=== PATIENT | male | born 1940 | race Caucasian/White ===

== ENCOUNTER 2017-05-09 11:46 | Emergency (ER) | payer MEDICARE ==
[~2017-05-09] VITALS: Ht 165.1 cm; Wt 84.5 kg
[~2017-05-09 11:46] MED LIST: /WARF25TA OR; ACET65TA PO; ASPI81TA45; ENALAPRIL PO; FISHCAP PO; LIPITOR PO; METFORMIN PO; MULTLIQ7 PO; PERC5TAB8 PO
[2017-05-09] MEDS ORDERED: GLIP5TAB8 (11:58)
[2017-05-09] MEDS ORDERED: JANU100T (11:58)
[2017-05-09] MEDS ORDERED: ASPIRIN 81 MG CHEW TABLET PO ONE (12:45)
[2017-05-09 13:04] LABS: BASO % 0.6 % (0.0-1.0); EOS # 0.2 K/mm3 (0.0-0.50); EOS % 2.3 % (0.0-3.0); LARGE UNSTAINED CELL # 0.4 K/mm3 (0.0-0.4); LARGE UNSTAINED CELL % 4.6 % (0.0-4.0); LYMPH # 2.8 K/mm3 (1.5-4.5); LYMPH % 33.6 % (24.0-44.0); MEAN CORPUSCULAR HEMOGLOBIN 30.5 pg (27.0-33.0); MEAN CORPUSCULAR HGB CONC 34.3 g/dl (32.0-36.5); MONO # 0.5 K/mm3 (0.0-0.8); MONO % 6.4 % (0.0-5.0); NEUTROPHILS # 4.3 K/mm3 (1.8-7.7); NEUTROPHILS % 52.6 % (36.0-66.0); PLATELET COUNT, AUTOMATED 229 k/mm3 (150-450); RED CELL DISTRIBUTION WIDTH 13.5 % (11.5-14.5); WHITE BLOOD COUNT 8.2 K/mm3 (4.0-10.0)
[2017-05-09 13:17] LABS: ANION GAP 4 MEQ/L (8-16); BLOOD UREA NITROGEN 17 MG/DL (7-18); CALCIUM LEVEL 9.7 MG/DL (8.8-10.2); CARBON DIOXIDE LEVEL 26 MEQ/L (21-32); CHLORIDE LEVEL 112 MEQ/L (98-107); CREATININE FOR GFR 1.14 MG/DL (0.70-1.30); GLOMERULAR FILTRATION RATE > 60.0 (>42); GLUCOSE, FASTING 85 MG/DL (83-110); POTASSIUM SERUM 4.2 MEQ/L (3.5-5.1); SODIUM LEVEL 142 MEQ/L (136-145)
[2017-05-09] MEDS ORDERED: NITROGLYCERIN 0.4 MG SUBL TABLET SL PRN (13:30)
--- NOTE | 2017-05-09 13:36 | REP ---
Portable chest x-ray: Sitting AP view. HISTORY: Chest pain. Comparison chest x-ray February 10, 2012. FINDINGS: EKG monitoring electrodes overlie the chest. There is a granulomatous calcification in the right base and granulomatous lymph node residuals are seen in the mediastinum. No infiltrate is seen. Pleural angles are sharp. Heart size is normal. IMPRESSION: No active disease. Signed by Nilesh Horn MD 05/09/2017 04:13 P
--- NOTE | 2017-05-09 13:46 | ECGEPIP ---
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
[2017-05-09 19:07] VITALS: BP 144/91
--- NOTE | 2017-05-10 08:29 | ECGEPIP ---
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
== END 2017-05-09 19:32 | disposition home or self-care (01) ==
LOC: M ED 11:46
DX: R07.89 Other chest pain (principal); I25.10 Atherosclerotic heart disease of native coronary artery without angina pectoris; I25.2 Old myocardial infarction; I10 Essential (primary) hypertension; E78.5 Hyperlipidemia, unspecified; Z98.61 Coronary angioplasty status; Z79.82 Long term (current) use of aspirin; Z79.899 Other long term (current) drug therapy

== ENCOUNTER → 2020-04-10 | Outpatient (CLI) | payer MEDICARE ==
[~2020-04-10] MED LIST changes: -/WARF25TA OR; +ASPI81TA85 PO; +ATOR80TA59 PO; +COUM1TAB18 OR; +ENAL5TAB PO; +GLIP5TAB8; +JANU100T; +METF500T13 PO; +PERC5TAB12 PO; +XARE10TA PO
[2020-04-10 11:05] LABS: HEMATOCRIT 44.1 % (42.0-52.0); HEMOGLOBIN 14.6 g/dl (13.5-17.5); MEAN CORPUSCULAR HEMOGLOBIN 29.5 pg (27.0-33.0); MEAN CORPUSCULAR HGB CONC 33.1 g/dl (32.0-36.5); MEAN CORPUSCULAR VOLUME 89.1 fl (80.0-96.0); PLATELET COUNT, AUTOMATED 245 10^3/uL (150-450); RED BLOOD COUNT 4.95 10^6/uL (4.30-6.10); WHITE BLOOD COUNT 8.4 10^3/uL (4.0-10.0)
[2020-04-10 11:16] LABS: INR 1.02; PROTHROMBIN TIME 13.1 SECONDS (11.8-14.0)
[2020-04-10 11:34] LABS: ALBUMIN 3.8 GM/DL (3.2-5.2); ALT/SGPT 53 U/L (12-78); BILIRUBIN,TOTAL 0.3 MG/DL (0.2-1.0); BLOOD UREA NITROGEN 17 MG/DL (7-18); CALCIUM LEVEL 9.3 MG/DL (8.8-10.2); CARBON DIOXIDE LEVEL 26 MEQ/L (21-32); CHLORIDE LEVEL 111 MEQ/L (98-107); CREATININE FOR GFR 1.12 MG/DL (0.70-1.30); GLOMERULAR FILTRATION RATE > 60.0 (>35); GLUCOSE, FASTING 85 MG/DL (70-100); POTASSIUM SERUM 4.1 MEQ/L (3.5-5.1); SODIUM LEVEL 140 MEQ/L (136-145); TOTAL PROTEIN 7.3 GM/DL (6.4-8.2)
--- NOTE | 2020-04-10 11:34 | REP ---
REASON: Preoperative evaluation. The latest prior for comparison is 05/09/2017, a portable exam. FINDINGS: The superior mediastinal structures are midline. The cardiac silhouette is unremarkable in size, shape, and position. The diaphragmatic surfaces of the lungs are regular, and the costophrenic angles are clear. The pulmonary lucero are clear. The imaged osseous structures are intact. IMPRESSION: There is no acute cardiopulmonary disease. There is an incidental calcified granuloma in the right lower lobe. Electronically Signed by Moe Brizuela DO 04/10/2020 01:45 P
[2020-04-10 11:37] LABS: ERYTHROCYTE SEDIMENTATION RATE 17 mm/hr (0-20)
--- NOTE | 2020-04-11 13:04 | ECGEPIP ---
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
== END ==
LOC: M LAB 10:27
PROVIDERS: ATTEND Orthopaedic Surgery
DX: Z01.812 Encounter for preprocedural laboratory examination (principal); Z01.810 Encounter for preprocedural cardiovascular examination; M17.11 Unilateral primary osteoarthritis, right knee; I45.10 Unspecified right bundle-branch block; Z79.899 Other long term (current) drug therapy

== ENCOUNTER → 2020-04-17 | Outpatient (CLI) | payer MEDICARE ==
[~2020-04-17] MED LIST changes: -ASPI81TA85 PO; +ASPI81TA86 PO; +ENAL5TA PO; -ENAL5TAB PO
== END ==
LOC: M LABSMTC 09:50
PROVIDERS: ATTEND Anesthesiology
DX: Z01.818 Encounter for other preprocedural examination (principal); Z11.59 Encounter for screening for other viral diseases

== ENCOUNTER 2020-04-20 06:57 | Inpatient (IN) | payer MEDICARE ==
--- NOTE | 2020-04-15 11:49 | HPE ---
DATE OF ADMISSION: 04/20/2020 ATTENDING PHYSICIAN: Dr. Ramana Alonzo. CHIEF COMPLAINT: Right knee pain and stiffness. HISTORY: The patient is a pleasant 80-year-old male presenting to clinic for history and physical regarding his right knee. The patient continues to have symptoms in the right knee with weightbearing activities and activities of daily living despite conservative treatment. The patient consented for an elective right total knee arthroplasty with Dr. Alonzo for his continued symptoms. Medical optimization completed with FERCHO Allen CURRENT MEDICATIONS: - aspirin 81 mg daily - enalapril 5 mg daily - Januvia 100 mg daily - glipizide 5 mg three times daily - atorvastatin 80 mg daily - metformin 1000 mg twice daily ALLERGIES: There are NO KNOWN DRUG ALLERGIES. CHRONIC MEDICAL CONDITIONS: Coronary arteriosclerosis. Carpal tunnel syndrome. Hyperlipidemia. Essential hypertension. Type 2 diabetes. PAST SURGICAL HISTORY: Left total knee arthroplasty. Coronary artery stenting, LAD. Carpal tunnel release. SOCIAL HISTORY: The patient is does not use tobacco products and occasionally consumes beer. The patient is and lives at home with spouse. REVIEW OF SYSTEMS: The patient denies fevers, chills, nausea, vomiting or diarrhea. Denies chest pain, shortness of breath, lightheadedness, dizziness or headaches. Denies any recent upper respiratory or urinary tract infection symptoms. Denies any abdominal pain continues to have right knee pain with weightbearing activities and activities of daily living. PHYSICAL EXAMINATION: GENERAL: Well-nourished, well-developed male in no apparent distress. He is alert, oriented and cooperative. Mood and affect are appropriate. VITAL SIGNS: Height 65 inches, weight 183 pounds, temperature 97 degrees, blood pressure 140/80, respirations 12, heart rate 54. NECK: Supple without lymphadenopathy. HEART: Regular rate and rhythm. LUNGS: Clear to auscultation bilaterally. ABDOMEN: Soft and nontender to palpation. Bowel sounds are present. MUSCULOSKELETAL: Right knee exhibits no gross abnormalities. Skin is intact. There is tenderness along the medial joint line. The patient can extend knee to about 2 degrees and flex to 95 degrees. Right lower extremity strength is 5/5. No hip irritability was elicited with range of motion testing. Calf is soft, nontender to palpation with no palpable cords noted. He is neurovascularly intact distally. LABORATORY DATA: Chest x-ray: No acute cardiopulmonary process. Incidental calcified granuloma in the right lower lobe. Right knee x-ray notable for end-stage degenerative changes. EKG: Normal sinus rhythm with PVCs and right bundle branch block. Comprehensive metabolic profile: Fasting glucose 85, BUN 17, creatinine for GFR 1.12, GFR greater than 60. Sodium 140, potassium 4.1, chloride elevated at 111, carbon dioxide 26, anion gap decreased at 3, calcium 9.3, AST 29, ALT 53, alkaline phosphatase 78, total bilirubin 0.3, total protein 7.3, albumin 3.8, albumin-globulin ratio 1.1. Prothrombin time 13.1, INR 1.02. Complete blood count: ESR 17, WBC 8.4, RBCs 4.95, hemoglobin 14.6, hematocrit 44.1, platelets 245. IMPRESSION: Right knee osteoarthritis with x-rays notable for end-stage degenerative changes. PLAN: The patient consented for an elective right total knee arthroplasty with Dr. Alonzo for his continued symptoms. Medical optimization completed with FERCHO Allen. The patient understands to be nothing by mouth after midnight, the night prior to surgery. He will call [facility] on Monday afternoon for a report time on Monday. He will continue to use his Bactroban and Hibiclens as directed. He will follow his primary respiratory care specialist's recommendations for taking daily medications and any anticoagulants if appropriate.
[~2020-04-20] VITALS: Ht 167.6 cm; Wt 83.0 kg
[~2020-04-20 06:57] MED LIST changes: +ACETAMINOPHEN 500 MG TAB PO ONE; +ASPI81TA85 PO; -ASPI81TA86 PO; +CelecoXIB (CeleBREX) 100 MG CAP PO ONE; -ENAL5TA PO; +ENAL5TAB PO; +LR 1,000 ML IV ONE; -PERC5TAB12 PO; +PERCOCET 5MG/325MG TAB PO ONE; +PREGABALIN 75 MG CAP(LYRICA) PO ONE; -XARE10TA PO; +ceFAZolin SOD 2 GM in IV 1 EA IV ONE
[2020-04-20] MEDS ORDERED: propofoL 500 MG/50 ML VIAL As Ordered ONE (08:46)
[2020-04-20] MEDS ORDERED: fentaNYL 100 MCG/2 ML INJECTION (J3010) As Ordered ONE ×2 (08:46→08:56)
[2020-04-20] MEDS ORDERED: LIDOCAINE 2% 100MG/5ML SDV (FOR ANES.) As Ordered ONE (08:47)
[2020-04-20] MEDS ORDERED: ONDANSETRON 4MG/2ML VIAL As Ordered ONE (08:47)
[2020-04-20] MEDS ORDERED: BUPIVACAINE/DEXTROSE 0.75% 2 ML AMP As Ordered ONE (08:54)
[2020-04-20] MEDS ORDERED: MIDAZOLAM INJ 2MG/2ML VIAL (J2250 PER 1MG) As Ordered ONE ×2 (08:56→10:17)
[2020-04-20] MEDS ORDERED: MIDAZOLAM INJ 2MG/2ML VIAL (J2250 PER 1MG) IV ONE (09:45)
[2020-04-20] MEDS ORDERED: fentaNYL 100 MCG/2 ML INJECTION (J3010) IV ONE (09:45)
[2020-04-20] MEDS ORDERED: BUPIVACAINE/EPIN 0.25% 30 ML VIAL As Ordered ONE (10:19)
[2020-04-20] MEDS ORDERED: TRANEXAMIC ACID 100 MG/ML 10ML VIAL As Ordered ONE (10:20)
[2020-04-20] MEDS ORDERED: ceFAZolin 1GM VIAL (J0690 PER 500MG) As Ordered ONE (10:21)
[2020-04-20] MEDS ORDERED: BUPIVACAINE HCL 0.25% 30ML VIAL As Ordered ONE (10:21)
[2020-04-20] MEDS ORDERED: EPINEPHrine INJ 1 MG/ML 1ML AMP As Ordered ONE (10:21)
[2020-04-20] MEDS ORDERED: BUPIVACAINE LIPOSOME/PF 1.3% 20ML VIAL (13.3MG/ML)(EXPAREL)(C9290 PER1MG) As Ordered ONE (10:21)
[2020-04-20] MEDS ORDERED: ROPIvacaine 0.5% 30ML INJECTION (J2795 PER 1MG) ONE (10:48)
[2020-04-20] MEDS ORDERED: dexameTHASONE 10MG/1ML VIAL PRES.FREE (J1100 PER 1MG) ONE (10:48)
[2020-04-20] MEDS ORDERED: EPINEPHrine INJ 1 MG/ML 1ML AMP ONE (10:48)
[2020-04-20] MEDS ORDERED: ePHEDrine SULFATE 25 MG/5 ML(5MG/ML) SYRINGE As Ordered ONE (11:16)
[2020-04-20] MEDS ORDERED: PHENYLephrine HCL 500 MCG/5 ML (100MCG/ML) SYRINGE (J2370) As Ordered ONE (11:16)
[2020-04-20] MEDS ORDERED: ONDANSETRON 4MG/2ML VIAL IV PRN (13:30)
[2020-04-20] MEDS ORDERED: D5W/0.45% SODIUM CHLORIDE 1,000 ML IV SCH (13:30)
[2020-04-20] MEDS ORDERED: ACETAMINOPHEN TAB 650MG DOSE (2X325MG) PO PRN (13:30)
[2020-04-20] MEDS ORDERED: PERCOCET 5MG/325MG TAB PO PRN (13:30)
[2020-04-20] MEDS ORDERED: PROMETHAZINE INJ 25 MG/ML VIAL (J2550) IV PRN (13:30)
--- NOTE | 2020-04-20 13:46 | REP ---
Clinical: Status post knee replacement. Technique: portable AP and cross-table lateral views. Findings: The patient is status post right knee replacement with normal positioning and appearance to the femoral and tibial components. Overlying postsurgical changes appreciated. Impression: Status post right knee replacement. Electronically Signed by Gavin Waters MD 04/20/2020 01:38 P
[2020-04-20 15:00] VITALS: BP 134/81
[2020-04-20 15:30] VITALS: BP 128/77
[2020-04-20] MEDS ORDERED: GLUCAGON INJ 1MG VIAL SC PRN (15:45)
[2020-04-20] MEDS ORDERED: DEXTROSE 50% 50 ML SYRINGE IV PRN (15:45)
[2020-04-20] MEDS ORDERED: GLUCOSE 4GM CHEW TABLET PO PRN (15:45)
--- NOTE | 2020-04-20 16:01 | CR.PDOC ---
General Date of Consultation: Apr 20, 2020 Referring Provider: Ramana Alonzo MD Consultation REASON FOR CONSULTATION/CHIEF COMPLAINT: Post op medical management HISTORY OF PRESENT ILLNESS: Patient is 80M with PMH OA, HTN, DM, HLD, CAD, Diverticulitis, carpal tunnel syndrome underwent R. TKA today. He had a history of b/l knee pains and has had previous L. TKA and now going for the R. knee. He is comfortable currently and denies any discomfort at all as well as any other complaints including chest pain, SOB, fever, chills. PAST MEDICAL HISTORY: Refer to HPI PAST SURGICAL HISTORY: L. TKA PCI with 1 stent placed 12 years ago carpal tunnel release SOCIAL HISTORY: Social alcohol. Denies tobacco or drug use. FAMILY HISTORY: Brother- [place] ALLERGIES: Please see below. REVIEW OF SYSTEMS: 10 point review of system negative except as stated in HPI HOME MEDICATIONS: Please see below. PHYSICAL EXAMINATION: General: No acute distress, Alert, pale Eyes: Normal sclera, EOMI HENT: Atraumatic Cardiovascular: Normal rate, normal rhythm. Pulmonary: Clear to auscultation b/l, no wheezing GI: Soft, nontender, nondistended Skin: Warm and dry. MSK: L. knee linear vertical scar. R. knee cover in bandage c/d/i. Neuro: CN grossly intact. No focal deficits. Strengths equal b/l. Psych: oriented x 3 LABORATORY DATA: See below. IMAGING: R. knee XR- Findings: The patient is status post right knee replacement with normal positioning and appearance to the femoral and tibial components. Overlying postsurgical changes appreciated. Impression: Status post right knee replacement. MICROBIOLOGY: None ASSESSMENT AND PLAN: 1. s/p R. TKA - Performed 04/20/20. Following by Orthopedic surgery. - PT eval and treat. - Pain control, not in significant discomfort yet at this time. - Xarelto for DVT ppx. Monitor wound. 2. DM - Hold hold oral meds. Start on low dose Levemir and ISS. - Monitor BS and adjust as needed. Restart home meds tomorrow or can even wait until discharge. 3. HTN - BP controlled. - Resume home Enalapril 5mg daily. 4. CAD s/p PCI - resume statin. - Will resume ASA tomorrow night despite Xarelto. PCI was 12 years ago with stent. - Increased risk of bleed. Discussed with patient. 5. HLD - c/w statin DVT ppx: Xarelto Vital Signs/I&O Vital Signs Date Time Temp Pulse Resp B/P (MAP) Pulse Ox O2 Delivery O2 Flow Rate FiO2 04/20/20 15:30 97.8 82 18 128/77 (94) 93 Room Air 04/20/20 13:05 2 Laboratory Data Labs 24H Laboratory Tests 2 04/20/20 08:07: Bedside Glucose (Misc Panel) 158H Allergies Coded Allergies: No Known Allergies (Verified , 04/13/20) Home Medications Scheduled Aspirin (Aspir 81) 81 Mg Tablet.dr, 81 MG PO DAILY, #30 (Reported) Atorvastatin Calcium (Atorvastatin Calcium) 80 Mg Tablet, 80 MG PO DAILY, (Reported) Enalapril Maleate (Enalapril Maleate) 5 Mg Tablet, 5 MG PO DAILY, (Reported) Glipizide (Glipizide) 5 Mg Tab, DAILY, #90 (Reported) Metformin HCl (Metformin HCl) 500 Mg Tablet, 500 MG PO BID, (Reported) Sitagliptin Phosphate (Januvia) 100 Mg Tab, DAILY, #30 (Reported) [Multivitamin] , 1 CAP PO DAILY, (Reported) WILFRID PRINCE MD Apr 20, 2020 16:01
[2020-04-20 16:30] VITALS: BP 133/81
[2020-04-20 17:30] VITALS: BP 126/79
[2020-04-20] MEDS: ceFAZolin SOD 2 GM in IV 1 EA IV SCH (17:58)
[2020-04-20] MEDS: HumaLOG INSULIN (NovoLOG) PER UNIT SC SCH (17:58)
[2020-04-20 19:12] VITALS: BP 124/78
[2020-04-20] MEDS ORDERED: HumaLOG INSULIN (NovoLOG) PER UNIT SC SCH (21:00)
[2020-04-20] MEDS ORDERED: LEVEMIR (INSULIN DETEMIR) 1 UNITS/0.01ML SC SCH (21:00)
[2020-04-20 22:00] VITALS: BP 124/71
[2020-04-21 02:00] VITALS: BP 130/79
[2020-04-21] MEDS: ceFAZolin SOD 2 GM in IV 1 EA IV SCH (02:07)
[2020-04-21] MEDS: PERCOCET 5MG/325MG TAB PO PRN ×2 (02:07→08:26)
[2020-04-21 06:00] VITALS: BP 149/75
[2020-04-21] MEDS ORDERED: PERC5TAB12 PO (06:16)
[2020-04-21] MEDS ORDERED: XARE10TA PO (06:16)
[2020-04-21 07:34] LABS: HEMATOCRIT 40.5 % (42.0-52.0); HEMOGLOBIN 13.3 g/dl (13.5-17.5); MEAN CORPUSCULAR HEMOGLOBIN 29.4 pg (27.0-33.0); MEAN CORPUSCULAR HGB CONC 32.8 g/dl (32.0-36.5); MEAN CORPUSCULAR VOLUME 89.6 fl (80.0-96.0); PLATELET COUNT, AUTOMATED 220 10^3/uL (150-450); RED BLOOD COUNT 4.52 10^6/uL (4.30-6.10); WHITE BLOOD COUNT 13.4 10^3/uL (4.0-10.0)
[2020-04-21] MEDS: HumaLOG INSULIN (NovoLOG) PER UNIT SC SCH ×2 (08:26→12:00)
[2020-04-21 08:29] VITALS: BP 163/87
[2020-04-21] MEDS ORDERED: MIRALAX *UNIT DOSE* 17GM PACKET PO SCH (09:00)
[2020-04-21] MEDS ORDERED: ENALAPRIL MALEATE 5 MG TAB PO SCH (09:00)
[2020-04-21] MEDS ORDERED: MOM 30ML SUSPENSION UDC PO SCH (09:00)
[2020-04-21 10:00] VITALS: BP 151/88
--- NOTE | 2020-04-21 11:30 | IPNPDOC ---
Text Note Date of Service The patient was seen on 04/21/20. NOTE Patient seen and examined. No overnight events PHYSICAL EXAMINATION: General: No acute distress, Alert, pale Eyes: Normal sclera, EOMI HENT: Atraumatic Cardiovascular: Normal rate, normal rhythm. Pulmonary: Clear to auscultation b/l, no wheezing GI: Soft, nontender, nondistended Skin: Warm and dry. MSK: L. knee linear vertical scar. R. knee cover in bandage c/d/i. Neuro: CN grossly intact. No focal deficits. Strengths equal b/l. Psych: oriented x 3 ASSESSMENT AND PLAN: 1. s/p R. TKA - Performed 04/20/20. Following by Orthopedic surgery. - PT eval and treat. - Pain control, not in significant discomfort yet at this time. - Xarelto for DVT ppx. Monitor wound. 2. DM - Monitor BS and adjust as needed. Restart home meds tomorrow or can even wait until discharge. 3. HTN - BP controlled. - Resume home Enalapril 5mg daily. 4. CAD s/p PCI - resume statin. - Will resume ASA tomorrow night despite Xarelto. PCI was 12 years ago with stent. - Increased risk of bleed. Discussed with patient. 5. HLD - c/w statin DVT ppx: Xarelto Disposition activity, pain control and diet as per primary VS,Fishbone, I+O VS, Fishbone, I+O Laboratory Tests 04/21/20 06:38 Vital Signs Date Time Temp Pulse Resp B/P (MAP) Pulse Ox O2 Delivery O2 Flow Rate FiO2 04/21/20 10:00 97.7 81 18 151/88 (109) 94 Room Air 04/20/20 13:05 2 I&O- Last 24 Hours up to 6 AM 04/21/20 06:00 Intake Total 1385 ml Output Total 1250 ml Balance 135 ml SHELLIE ARMENTA MD Apr 21, 2020 11:30
[2020-04-21] MEDS ORDERED: RIVAROXABAN 10 MG TAB (XARELTO) PO SCH (18:00)
[2020-04-21] MEDS ORDERED: ASPIRIN 81 MG ENTERIC TAB PO SCH (21:00)
--- NOTE | 2020-04-23 10:36 | RO ---
DATE OF SURGERY: 04/20/2020 PREOPERATIVE DIAGNOSIS: Right knee osteoarthritis. POSTOPERATIVE DIAGNOSIS: Right knee osteoarthritis. PROCEDURE PERFORMED: Right total knee replacement. SURGEON: Ramana Alonzo MD TWISTER HAND: Madelin Lopez PA-C ANESTHESIA: Spinal with block; Dr. Bach. COMPLICATIONS: None. ESTIMATED BLOOD LOSS: Less than 100. TOURNIQUET: Was inflated; tourniquet time less than 70 minutes at 250 mmHg. COMPONENTS USED: Include DePuy Attune total knee system, size 6 femoral component, size 6 polyethylene posterior stabilized spacer, size 7 tibial tray and 32 mm patella button and methylmethacrylate bone cement, tobramycin impregnated. INDICATIONS: Progressive discomfort in the right knee. Radiographic evidence of arthritic change. Patient has elected for operative intervention. Consent reviewed in detail including a shree discussion of pathology involved, the procedure proposed, alternatives including doing nothing and risks including not limited to pain, failure, infection, bleeding blood loss, incomplete relief of symptoms, need for additional surgery and other issues. The patient agrees to proceed with surgery. OPERATIVE COURSE: Identified in holding area. Site side verified. Brought to the operating room. After spinal anesthesia was administered, he was then positioned in usual fashion for exposure of the right lower extremity for knee arthroplasty. The femoral block had been administered in the preoperative area. Next, time-out was accomplished. Once I and the neurology nurse were comfortable with the patient's positioning, he was sterilely prepped and draped. We began the procedure. The leg was elevated. Ellsworth exsanguination was accomplished. Tourniquet was inflated to 250 mmHg. A standard midline parapatellar incision made, developed down through skin and subcuticular tissues. Arthrotomy to the medial side. Patella was everted. The medial release was accomplished. Infrapatellar fat pad was removed. The knee was placed in a flexed position. A femoral opening reamer was utilized, followed by the intramedullary guide. Distal femoral cuts implemented with the appropriate retractors protecting the collateral ligaments. Cut was made by Ms. Lopez. Next, once this was accomplished AP sizing jig was applied predicting the size 6 femoral component. Next, 4-in-1 sizing block was then installed, pinned into place. Anterior and posterior cuts were made followed by chamfer cuts. Next, once this was accomplished the notch cutting guide was applied, pinned into place. Femoral notch cut was made. Next, once this was accomplished, extramedullary tibial guide was applied, pinned into place 4 mm off the medial side. A drop suze was utilized to verify alignment. Hohmann retractors were secured by Ms. Lopez. Tibial cut was made with the oscillating saw. Next, a laminar form block maker was utilized to expose the meniscus and posterior structures. Meniscus was removed using a #15 blade knife. Posterior condylar cuts were debrided using a curved osteotome removing posterior osteophyte. Next, AP sizing blocks were utilized predicting the tibial component as a size 6 spacer. Next, the knee was flexed. Posterior retractor was applied. Hohmann retractors were applied. Tibial base plate was sized for a size 7. This was pinned into place. The broach guide was installed. Canal opening drill was utilized for the tibia, followed by the broach. Broach left in place. Next, the trial femoral component was installed. The trial tibial tray was installed. The knee was placed through a range of motion. A 6 mm spacer was found to be appropriate. Knee in extended position. Posterior patella cut was made with the oscillating saw. A 32 mm patellar jig was installed. Patella was drilled. Trial patella was installed. Knee was placed through a range of motion. Patellar tracking was excellent. Next, trial components were then removed. I prepared the knee surfaces while Ms. Lopez stepped to the back table to prepare the bone cement. Once the bone cement was the appropriate consistency, we placed bone cement on the posterior femoral condyles. We had lavaged the bone surfaces with pulse lavage and dried them. We applied cement on the tibial surface. Cemented the tibial component. Removed excess cement using curettes. Femoral component was then cemented into place, tamped into place. Excess cement removed using curettes. Non-trial polyethylene 6 posterior stabilized spacer was installed. Knee was placed in extended position. Patella was everted. Patella button was cemented into place. Patella clamp applied until cement was hardened. Excess cement was removed from the patella using curettes. Next, once this cement was the appropriate consistency, we then utilized Exparel solution for postoperative analgesia. We irrigated with pulse lavage. We allowed tranexamic acid (TXA) solution to stay in the knee for 1 minute. Next, arthrotomy was closed with interrupted and running Stratafix stitch. The skin incision was closed using interrupted stitch, followed by application of a Prineo dressing. Tourniquet was deflated. The patient was moved to recovery room in good condition. For further details please refer to medical record. Ms. Madelin Lopez was present and participated in the entirety of the case in capacity of funeral assistant.
== END 2020-04-21 12:40 | disposition home or self-care (01) | DRG 470 ==
LOC: M OR 06:57 → M MS5PR 14:55
PROVIDERS: ADMIT Orthopaedic Surgery; ATTEND Orthopaedic Surgery
PROC: 0SRC0J9 Replacement of Right Knee Joint with Synthetic Substitute, Cemented, Open Approach (ICD-10-PCS; principal; 2020-04-20 09:15)
DX: M17.11 Unilateral primary osteoarthritis, right knee (principal); Z11.59 Encounter for screening for other viral diseases; E78.5 Hyperlipidemia, unspecified; I10 Essential (primary) hypertension; E11.9 Type 2 diabetes mellitus without complications; Z88.6 Allergy status to analgesic agent; Z79.899 Other long term (current) drug therapy; Z79.82 Long term (current) use of aspirin; Z96.652 Presence of left artificial knee joint; I25.10 Atherosclerotic heart disease of native coronary artery without angina pectoris; K57.30 Diverticulosis of large intestine without perforation or abscess without bleeding; Z95.2 Presence of prosthetic heart valve

== ENCOUNTER → 2021-04-14 | Outpatient (REF) | payer MEDICARE ==
[~2021-04-14] MED LIST changes: -ACETAMINOPHEN 500 MG TAB PO ONE; -ASPI81TA85 PO; +ASPI81TA86 PO; -CelecoXIB (CeleBREX) 100 MG CAP PO ONE; +ENAL5TA PO; -ENAL5TAB PO; -LR 1,000 ML IV ONE; +PERC5TAB12 PO; -PERCOCET 5MG/325MG TAB PO ONE; -PREGABALIN 75 MG CAP(LYRICA) PO ONE; +XARE10TA PO; -ceFAZolin SOD 2 GM in IV 1 EA IV ONE
== END ==
LOC: M LAB REF 13:10
PROVIDERS: ATTEND Nurse Practitioner Adult Health
DX: N39.41 Urge incontinence (principal)

== ENCOUNTER → 2021-06-29 | Outpatient (REF) | payer MEDICARE ==
[2021-06-29 12:28] LABS: APPEARANCE, URINE HAZY (CLEAR); BACTERIA, URINE AUTO NEGATIVE (NEGATIVE); BILIRUBIN, URINE AUTO NEGATIVE (NEGATIVE); BLOOD, URINE BLOOD NEGATIVE (NEGATIVE); COLOR, URINE YELLOW (YELLOW); GLUCOSE, URINE (UA) AUTO NEGATIVE (NEGATIVE); KETONE, URINE AUTO NEGATIVE (NEGATIVE); LEUKOCYTE ESTERASE, URINE AUTO NEGATIVE (NEGATIVE); MUCUS, URINE SMALL (NEGATIVE); NITRITE, URINE AUTO NEGATIVE (NEGATIVE); PROTEIN, URINE AUTO NEGATIVE (NEGATIVE); RBC, URINE AUTO 0 /HPF (0-3); SPECIFIC GRAVITY URINE AUTO 1.019 (1.002-1.035); SQUAMOUS EPITHELIAL CELL UR AU 0 /HPF (0-6); UROBILINOGEN, URINE AUTO 0.2 mg/dL (0.0-2.0); WBC, URINE AUTO 0 /HPF (0-3)
== END ==
LOC: M SMT 11:49
PROVIDERS: ATTEND Nurse Practitioner Women's Health
DX: N40.1 Benign prostatic hyperplasia with lower urinary tract symptoms (principal)
CPT/HCPCS: 51798; 81001; 87086; G0463

== ENCOUNTER → 2022-02-11 | Outpatient (CLI) | payer MEDICARE | LOC: M LABSMTC 09:43 | PROVIDERS: ATTEND Internal Medicine Cardiovascular Disease | DX: Z01.812 Encounter for preprocedural laboratory examination (principal); Z20.822 Contact with and (suspected) exposure to COVID-19 ==

== ENCOUNTER → 2022-06-16 | Outpatient (CLI) | payer MEDICARE ==
[~2022-06-16] MED LIST changes: +ISOVUE-370 76% 100ML VIAL As Ordered ONE
== END ==
LOC: M RAD 08:53
PROVIDERS: ATTEND Nurse Practitioner Adult Health
DX: R91.8 Other nonspecific abnormal finding of lung field (principal); I25.10 Atherosclerotic heart disease of native coronary artery without angina pectoris; K76.0 Fatty (change of) liver, not elsewhere classified; J84.10 Pulmonary fibrosis, unspecified
CPT/HCPCS: 71260; Q9967

== ENCOUNTER → 2023-03-08 | Outpatient (CLI) | payer MEDICARE ==
[~2023-03-08] MED LIST changes: +ENAL1TAB48 PO; -ENAL5TA PO; -ISOVUE-370 76% 100ML VIAL As Ordered ONE
== END ==
LOC: M WUC 11:49
PROVIDERS: ATTEND Nurse Practitioner Adult Health
DX: M19.012 Primary osteoarthritis, left shoulder (principal); M25.812 Other specified joint disorders, left shoulder

== ENCOUNTER → 2025-02-19 | Outpatient (REF) | payer MEDICARE ==
[~2025-02-19] MED LIST changes: +GLIP5TAB17; -GLIP5TAB8
[2025-02-19 13:02] LABS: RSV AMPLIFICATION NEGATIVE (NEGATIVE)
== END ==
LOC: M LAB REF 11:52
PROVIDERS: ATTEND Nurse Practitioner Family
DX: R53.83 Other fatigue (principal); R53.1 Weakness

== ENCOUNTER → 2025-05-06 | Outpatient (CLI) | payer MEDICARE | LOC: M RAD 10:32 | PROVIDERS: ATTEND Nurse Practitioner Family | DX: N18.32 Chronic kidney disease, stage 3b (principal); N28.1 Cyst of kidney, acquired; N40.0 Benign prostatic hyperplasia without lower urinary tract symptoms ==

== ENCOUNTER → 2025-05-12 | Outpatient (REF) | payer MEDICARE ==
[2025-05-12 19:03] LABS: IRON (FE) 53.0 UG/DL (65-175); PERCENT SATURATION 19.6 % (19.7-50.0)
== END ==
LOC: M LAB REF 17:21
PROVIDERS: ATTEND Internal Medicine Nephrology
DX: D50.9 Iron deficiency anemia, unspecified (principal)

== ENCOUNTER → 2025-06-24 | Outpatient (CLI) | payer MEDICARE | LOC: M RAD 07:37 | PROVIDERS: ATTEND Internal Medicine Nephrology | DX: I70.1 Atherosclerosis of renal artery (principal); N28.1 Cyst of kidney, acquired; N40.0 Benign prostatic hyperplasia without lower urinary tract symptoms ==

== ENCOUNTER 2025-08-03 10:27 | Emergency (ER) | payer MEDICARE ==
[~2025-08-03] VITALS: Ht 165.1 cm; Wt 63.8 kg
[2025-08-03 11:58] LABS: BASO # 0.0 10^3/uL (0.0-0.2); BASO % 0.3 % (0.0-1.0); EOS # 0.0 10^3/uL (0.0-0.5); EOS % 0.2 % (0.0-3.0); LYMPH # 2.6 10^3/uL (1.5-5.0); LYMPH % 21.0 % (24.0-44.0); MONO # 0.9 10^3/uL (0.0-0.8); MONO % 7.4 % (2.0-8.0); NEUTROPHILS # 8.8 10^3/uL (1.5-8.5); NEUTROPHILS % 70.7 % (36.0-66.0); PLATELET COUNT, AUTOMATED 210 10^3/uL (150-450)
[2025-08-03 12:24] LABS: ALT/SGPT 36.0 U/L (7.0-40); AST/SGOT 24.0 U/L (<34); CALCIUM LEVEL 8.6 MG/DL (8.3-10.6); CARBON DIOXIDE LEVEL 17.0 MMOL/L (20-31); CHLORIDE LEVEL 110.0 MMOL/L (98-107); CREATININE FOR GFR 2.18 MG/DL (0.70-1.30); GLOMERULAR FILTRATION RATE 29.0 (>35); POTASSIUM SERUM 4.4 MMOL/L (3.5-5.1); SODIUM LEVEL 143.0 MMOL/L (136-145)
[2025-08-03 14:31] LABS: KETONE, URINE AUTO RFX TRACE mg/dL (NEGATIVE); LEUKOCYTE ESTERASE UR AUTO RFX NEGATIVE (NEGATIVE); MUCUS, URINE RFX SMALL (NEGATIVE); NITRITE, URINE AUTO RFX NEGATIVE (NEGATIVE); RBC, URINE AUTO RFX 0 /HPF (0-3); SQUAM EPITHELIAL CELL UR AURFX 0 /HPF (0-6); WBC, URINE AUTO RFX 0 /HPF (0-3)
[2025-08-03] MEDS: NS (Normal Saline) 0.9% 1,000 ML IV ONE (16:10)
[2025-08-03] MEDS: ONDANSETRON 4MG 2ML VIAL IV ONE (17:52)
[2025-08-03] MEDS: MORPHINE 4 MG/ML 1 ML VIAL IV ONE (17:53)
[2025-08-03 18:25] VITALS: BP 150/70; TEMP 98.6; O2SAT 97
== END 2025-08-03 18:28 | disposition short-term general hospital (02) ==
LOC: M ED 10:27
DX: K85.10 Biliary acute pancreatitis without necrosis or infection (principal); N28.1 Cyst of kidney, acquired; M51.35 Other intervertebral disc degeneration, thoracolumbar region; M51.379 Other intervertebral disc degeneration, lumbosacral region without mention of lumbar back pain or lower extremity pain; E11.9 Type 2 diabetes mellitus without complications; K57.30 Diverticulosis of large intestine without perforation or abscess without bleeding; E78.5 Hyperlipidemia, unspecified; G56.00 Carpal tunnel syndrome, unspecified upper limb; Z79.82 Long term (current) use of aspirin; Z79.02 Long term (current) use of antithrombotics/antiplatelets; Z79.4 Long term (current) use of insulin; Z79.899 Other long term (current) drug therapy
CPT/HCPCS: 74181; 80053; 81001; 83690; 85025; 96361; 96374; 96375; 99284; J2405

== ENCOUNTER → 2025-10-07 | Outpatient (REF) | payer MEDICARE ==
[2025-10-07 18:42] LABS: IRON (FE) 61.0 UG/DL (65-175); PERCENT SATURATION 23.0 % (19.7-50.0)
== END ==
LOC: M LAB REF 17:36
PROVIDERS: ATTEND Internal Medicine Nephrology
DX: D50.9 Iron deficiency anemia, unspecified (principal)